=== PATIENT | female | born 2005 | race African-American/Black ===

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

== ENCOUNTER 2025-04-20 20:51 | Emergency (ER) | payer SELFPAY ==
[2025-04-20] MEDS ORDERED: Acetaminophen 325 MG TAB ONE (22:18)
== END 2025-04-20 22:53 | disposition left against medical advice (07) ==
LOC: ERS 20:51
DX: Z53.21 Procedure and treatment not carried out due to patient leaving prior to being seen by health care provider (principal)